=== PATIENT | female | born 1950 | race Native Hawaiian/Other Pacific Islander ===

== ENCOUNTER 2017-05-27 15:31 | Outpatient (CLI) | payer OTHER, MEDICARE | END 2017-05-27 19:01 | disposition home or self-care (01) | LOC: RAD 15:31 | DX: M79.601 Pain in right arm (principal); M25.521 Pain in right elbow ==

== ENCOUNTER 2017-10-10 16:37 | Outpatient (CLI) | payer OTHER, MEDICARE ==
[2017-10-10 17:18] LABS: PLATELET COUNT 273 K/uL (152-353)
[2017-10-10 19:19] LABS: POTASSIUM 3.8 mmol/L (3.6-5.2)
== END 2017-10-10 17:40 | disposition home or self-care (01) ==
LOC: LABW 16:37
PROVIDERS: Surgery
DX: D64.89 Other specified anemias (principal); R53.83 Other fatigue; I25.10 Atherosclerotic heart disease of native coronary artery without angina pectoris
CPT/HCPCS: 36415; 80053; 80061; 82607; 82746; 84436; 84443; 84479; 85027; 86376

== ENCOUNTER 2018-01-01 13:58 | Outpatient (CLI) | payer OTHER, MEDICARE ==
[2018-01-01 14:12] LABS: PLATELET COUNT 274 K/uL (152-353)
[2018-01-01 14:45] LABS: POTASSIUM 4.4 mmol/L (3.6-5.2)
== END 2018-01-01 22:04 | disposition home or self-care (01) ==
LOC: LAB 13:58
PROVIDERS: Nurse Practitioner Family
DX: Z00.00 Encounter for general adult medical examination without abnormal findings (principal); R53.82 Chronic fatigue, unspecified; R53.81 Other malaise; E66.01 Morbid (severe) obesity due to excess calories; Z79.899 Other long term (current) drug therapy; E55.9 Vitamin D deficiency, unspecified; Z51.81 Encounter for therapeutic drug level monitoring
CPT/HCPCS: 80053; 80061; 82306; 82607; 83036; 84436; 84443; 85027

== ENCOUNTER 2018-02-13 12:38 | Outpatient (CLI) | payer OTHER, MEDICARE | END 2018-02-13 19:13 | disposition home or self-care (01) | LOC: CT 12:38 | DX: K57.92 Diverticulitis of intestine, part unspecified, without perforation or abscess without bleeding (principal) | CPT/HCPCS: 36415; 82565; 84520; Q9963 ==

== ENCOUNTER 2019-09-17 09:15 | Outpatient (CLI) | payer OTHER, MEDICARE | END 2019-09-17 22:39 | disposition home or self-care (01) | LOC: MAMMO 09:15 | DX: Z13.820 Encounter for screening for osteoporosis (principal); Z12.31 Encounter for screening mammogram for malignant neoplasm of breast; Z13.6 Encounter for screening for cardiovascular disorders; N95.8 Other specified menopausal and perimenopausal disorders; Z87.891 Personal history of nicotine dependence ==

== ENCOUNTER 2020-06-29 14:31 | Outpatient (CLI) | payer OTHER, MEDICARE ==
[2020-06-29 15:25] LABS: PLATELET COUNT 315 K/uL (152-353)
[2020-06-29 15:43] LABS: POTASSIUM 5.5 mmol/L (3.6-5.2)
== END 2020-06-29 19:53 | disposition home or self-care (01) ==
LOC: LAB 14:31
PROVIDERS: ATTEND Internal Medicine
DX: E11.9 Type 2 diabetes mellitus without complications (principal)
CPT/HCPCS: 80053; 80061; 81000; 82043; 82570; 83036; 84439; 84443; 85027

== ENCOUNTER 2020-07-07 17:38 | Outpatient (CLI) | payer OTHER, MEDICARE ==
[2020-07-07 18:49] LABS: POTASSIUM 4.9 mmol/L (3.6-5.2)
== END 2020-07-07 18:59 | disposition home or self-care (01) ==
LOC: LAB 17:38
PROVIDERS: ATTEND Internal Medicine
DX: E87.5 Hyperkalemia (principal)
CPT/HCPCS: 80048

== ENCOUNTER 2021-03-31 09:32 | Outpatient (CLI) | payer OTHER, MEDICARE ==
[2021-03-31 23:41] LABS: LDL CHOLESTEROL 37.5 mg/dL (0-99*)
== END 2021-03-31 23:06 | disposition home or self-care (01) ==
LOC: LABW 09:32
PROVIDERS: ATTEND Internal Medicine Interventional Cardiology
DX: E78.49 Other hyperlipidemia (principal)
CPT/HCPCS: 36415; 80061; 80076

== ENCOUNTER 2021-06-06 09:06 | Outpatient (CLI) | payer OTHER, MEDICARE ==
[2021-06-06 09:33] LABS: PLATELET COUNT 332 K/uL (152-353)
[2021-06-06 09:54] LABS: POTASSIUM 4.5 mmol/L (3.6-5.2)
== END 2021-06-06 21:52 | disposition home or self-care (01) ==
LOC: LABW 09:06
PROVIDERS: ATTEND Internal Medicine
DX: E11.9 Type 2 diabetes mellitus without complications (principal)
CPT/HCPCS: 36415; 80053; 80061; 81000; 82043; 83036; 84439; 84443; 85027

== ENCOUNTER 2021-12-12 07:59 | Outpatient (CLI) | payer OTHER, MEDICARE ==
[2021-12-12 08:24] LABS: PLATELET COUNT 305 K/uL (152-353)
[2021-12-12 08:47] LABS: POTASSIUM 4.5 mmol/L (3.6-5.2)
== END 2021-12-12 19:37 | disposition home or self-care (01) ==
LOC: LABW 07:59
PROVIDERS: ATTEND Internal Medicine
DX: E11.9 Type 2 diabetes mellitus without complications (principal)
CPT/HCPCS: 36415; 80053; 80061; 81000; 82043; 83036; 84439; 84443; 85027

== ENCOUNTER 2022-05-15 07:34 | Outpatient (CLI) | payer OTHER, MEDICARE ==
[2022-05-15 08:09] LABS: PLATELET COUNT 306 K/uL (152-353)
[2022-05-15 09:01] LABS: POTASSIUM 4.8 mmol/L (3.6-5.2)
== END 2022-05-15 20:54 | disposition home or self-care (01) ==
LOC: RAD 07:34
PROVIDERS: ATTEND Internal Medicine
DX: E11.9 Type 2 diabetes mellitus without complications (principal); R06.09 Other forms of dyspnea
CPT/HCPCS: 36415; 80053; 80061; 81002; 83880; 84439; 84443; 85027; 85379

== ENCOUNTER 2022-05-17 10:39 | Outpatient (CLI) | payer OTHER, MEDICARE | END 2022-05-17 19:24 | disposition home or self-care (01) | LOC: US 10:39 | PROVIDERS: ATTEND Internal Medicine | DX: R79.89 Other specified abnormal findings of blood chemistry (principal) ==

== ENCOUNTER → 2022-06-19 | Outpatient (CLI) | payer OTHER, MEDICARE | LOC: LABW 11:58 | PROVIDERS: ATTEND Internal Medicine Endocrinology, Diabetes & Metabolism | DX: E05.20 Thyrotoxicosis with toxic multinodular goiter without thyrotoxic crisis or storm (principal) | CPT/HCPCS: 36415; 83520; 84439; 84443; 84445; 84480; 84481; 86376; 86800 ==

== ENCOUNTER → 2022-09-13 | Outpatient (CLI) | payer OTHER, MEDICARE ==
[2022-09-13 12:34] LABS: PLATELET COUNT 331 K/uL (152-353)
[2022-09-13 13:04] LABS: POTASSIUM 4.2 mmol/L (3.6-5.2)
== END ==
LOC: LABW 11:54
PROVIDERS: ATTEND Internal Medicine
DX: E05.90 Thyrotoxicosis, unspecified without thyrotoxic crisis or storm (principal); R53.82 Chronic fatigue, unspecified; I25.10 Atherosclerotic heart disease of native coronary artery without angina pectoris; E11.9 Type 2 diabetes mellitus without complications; I10 Essential (primary) hypertension
CPT/HCPCS: 36415; 80053; 80061; 81000; 82043; 83036; 84439; 84443; 85027; 86663; 86665; 87497

== ENCOUNTER 2022-10-09 15:55 | Outpatient (CLI) | payer OTHER, MEDICARE | END 2022-10-09 22:09 | disposition home or self-care (01) | LOC: US 15:55 | PROVIDERS: ATTEND Otolaryngology | DX: E05.00 Thyrotoxicosis with diffuse goiter without thyrotoxic crisis or storm (principal) ==

== ENCOUNTER 2023-01-15 15:13 | Outpatient (CLI) | payer OTHER, MEDICARE | END 2023-01-15 19:43 | LOC: RAD 15:13 | PROVIDERS: ATTEND Internal Medicine Pulmonary Disease | DX: R06.09 Other forms of dyspnea (principal) ==

== ENCOUNTER 2023-03-29 08:54 | Outpatient (CLI) | payer OTHER, MEDICARE ==
[2023-03-29 09:15] LABS: PLATELET COUNT 301 K/uL (152-353)
[2023-03-29 09:40] LABS: POTASSIUM 4.5 mmol/L (3.6-5.2)
== END 2023-03-29 19:14 | disposition home or self-care (01) ==
LOC: LABW 08:54
PROVIDERS: ATTEND Internal Medicine
DX: E11.9 Type 2 diabetes mellitus without complications (principal)
CPT/HCPCS: 36415; 80053; 80061; 82043; 83036; 84439; 84443; 85027